=== PATIENT | female | born 1975 | race African-American/Black ===

== ENCOUNTER 2017-07-02 19:16 | Emergency (ER) | payer OTHER ==
[~2017-07-02] VITALS: Ht 170.2 cm; Wt 100.0 kg
[2017-07-03] MEDS ORDERED: HYDROCODONE/ACETAMINOPHEN 5/325MG TABLET PO ONE
[2017-07-03 01:00] VITALS: BP 125/89
== END 2017-07-03 01:55 | disposition home or self-care (01) ==
LOC: ER 20:19
DX: M25.561 Pain in right knee (principal); J45.909 Unspecified asthma, uncomplicated; F32.9 Major depressive disorder, single episode, unspecified; F10.21 Alcohol dependence, in remission; F12.10 Cannabis abuse, uncomplicated; W13.8XXA Fall from, out of or through other building or structure, initial encounter; Y93.89 Activity, other specified; Y92.89 Other specified places as the place of occurrence of the external cause
CPT/HCPCS: 73560; 81025; 99283

== ENCOUNTER 2020-01-27 02:31 | Emergency (ER) | payer OTHER ==
[~2020-01-27] VITALS: Ht 170.2 cm; Wt 91.0 kg
[2020-01-27 02:37] VITALS: BP 146/97
== END 2020-01-27 05:39 | disposition left against medical advice (07) ==
LOC: ER 02:31
DX: Z53.21 Procedure and treatment not carried out due to patient leaving prior to being seen by health care provider (principal)